=== PATIENT | male | born 1940 | race Caucasian/White ===

== ENCOUNTER 2017-02-14 16:19 | Outpatient (CLI) | payer MEDICARE, BC | END 2017-02-14 16:20 | LOC: HPCALD 16:19 | PROVIDERS: ATTEND Family Medicine | DX: D49.2 Neoplasm of unspecified behavior of bone, soft tissue, and skin (principal) ==

== ENCOUNTER 2019-08-12 13:39 | Outpatient (CLI) | payer MEDICARE, BC ==
--- NOTE | 2019-08-13 02:16 | RAD ---
CHEST TWO VIEWS: 08/12/19 No prior films were available for comparison. COPD is present with marked flattening of the diaphragm . The lungs are clear except for some small areas of scarring in the lung bases and lingula. There is no sign of pneumonia, mass, or fluid. There is no vascular congestion or edema. Calcification is see n in the aortic arch. On the lateral view there is a metallic object overlying the trachea in the upp er part of the chest. I am presuming that this may be external to the patient. I do not see it on the PA film. IMPRESSION: COPD but no acute findings. POS: HOME
== END 2019-08-12 13:40 | disposition home or self-care (01) ==
LOC: BURRAD 13:39
PROVIDERS: ATTEND Family Medicine
DX: R05 Cough (principal); J44.9 Chronic obstructive pulmonary disease, unspecified
CPT/HCPCS: 71046